=== PATIENT | female | born 1950 | race Caucasian/White ===

== ENCOUNTER 2016-10-25 12:24 | Emergency (ER) | payer MEDICARE, OTHER ==
[~2016-10-25] VITALS: Ht 162.6 cm; Wt 82.0 kg
--- OUTSIDE RECORDS SUMMARY | 2016-10-25 12:34 | XMS REPORT | Summary of Care ---
Author Author Brandt Cruz M.D. Organization Unknown Address Unknown Phone Unavailable Care Team Providers Care Swing Saw Operator Name Role Phone Brandt Cruz M.D. Unavailable Unavailable Nabeel Ferraro M.D. Unavailable Unavailable Deanna Rojo M.D. Unavailable Unavailable Brandt Cruz Unavailable Unavailable Francisco JesusBernardo Unavailable Unavailable Unavailable Unavailable Functional Status Name Dates Details Functional status health issues are not documented Status: Name Dates Details Cognitive status health issues are not documented Status: Problems Name Dates Details Infective otitis externa (380.10, H60.399) Status: Active High risk medication use (V58.69, Z79.899) Status: Active Difficulty swallowing solids (787.20, R13.10) Status: Active Traumatic brain injury (854.00, S06.9X9A) Status: Active Stroke syndrome (434.91, I63.9) Status: Active Personality disorder, unspecified (301.9, F60.9) Status: Active Esophageal reflux (530.81, K21.9) Status: Active Dissocial personality disorder (301.7, F60.2) Status: Active Strain of trapezius muscle, left, initial encounter (840.8, S46.812A) Status: Active Low back pain (724.2, M54.5) Status: Active Trapezius strain (840.8, S46.819A) Status: Active Constipation (564.00, K59.00) Status: Active Screening, lipid (V77.91, Z13.220) Status: Active Complex partial seizure (345.40, G40.209) Status: Active Arthritis, degenerative (715.90, M19.90) Status: Active Nausea (787.02, R11.0) Status: Active Light-headedness (780.4, R42) Status: Active Insomnia (780.52, G47.00) Status: Active Anxiety disorder (300.00, F41.9) Status: Active Fracture of right humerus (812.20, S42.301A) Status: Active Double vision (368.2, H53.2) Status: Active Uncontrolled pain (780.96, R52) Status: Active Humerus fracture (812.20, S42.309A) Status: Active Traumatic hematoma of upper arm (923.03, S40.029A) Status: Active Anemia (285.9, D64.9) Status: Active Medications Name Dates Details LamoTRIgine 100 MG Oral Tablet Take 2 1/2 tabs in AM and 2 tabs in PM Quantity: 405 Refills: 3 Kemar Rojo M.D. Start 12-Sep-2011 Active Zonisamide 100 MG Oral Capsule TAKE 4 CAPSULES AT BEDTIME. Quantity: 360 Refills: 1 Kemar Rojo M.D. Start 12-Sep-2011 Active Omeprazole 20 MG Oral Capsule Delayed Release TAKE 1 CAPSULE TWICE DAILY. Quantity: 60 Refills: 6 Ronan Coleman Baltazar Lees Start Active DULoxetine HCl - 60 MG Oral Capsule Delayed Release Particles TAKE 1 CAPSULE DAILY. Quantity: 90 Refills: 3 Brandt Cruz M.D. Start Active Calcium 1200 2129-1863 MG-UNIT Oral Tablet Chewable Refills: 0 Kemar Rojo M.D. Start Active D3-1000 1000 UNIT Oral Capsule TAKE DIRECTED. Refills: 0 Kemar Rojo M.D. Start Active ROPINIRole HCl - 0.5 MG Oral Tablet Take 1 tablet twice daily Quantity: 180 Refills: 3 Brandt Cruz M.D. Start 30-Sep-2015 Active Fish Oil 1000 MG Oral Capsule TAKE 1 CAPSULE DAILY. Refills: 0 Kemar Rojo M.D. Start 30-Sep-2015 Active Vitamin B-12 1000 MCG Oral Tablet TAKE 1 TABLET DAILY DIRECTED. Refills: 0 Kemar Rojo M.D. Start 30-Sep-2015 Active Ibuprofen 400 MG Oral Tablet TAKE 1 TABLET 4 TIMES DAILY NEEDED. Refills: 0 Kemar Rojo M.D. Start 30-Sep-2015 Active Combigan 0.2-0.5 % Ophthalmic Solution 1 drop in each eye twice daily Refills: 0 Kemar Rojo M.D. Start 30-Sep-2015 Active B Complex Oral Capsule TAKE 1 CAPSULE DAILY. Refills: 0 Darrel Coleman Kemar Huerta Start 30-Sep-2015 Active Loratadine 10 MG Oral Tablet TAKE 1 TABLET DAILY NEEDED. Refills: 0 Darrel Coleman Kemar Huerta Start 30-Sep-2015 Active Benadryl 25 MG Oral Tablet take 1/2 tablet daily as needed Refills: 0 Darrel Coleman Kemar Huerta Start 30-Sep-2015 Active DOK 100 MG Oral Capsule TAKE 1 CAPSULE DAILY. Refills: 0 Start 18-Jan-2016 Active LamoTRIgine 100 MG Oral Tablet TAKE 1 TABLET DAILY. Refills: 0 Start 18-Jan-2016 Active Vitamin B Complex Oral Tablet Refills: 0 Start 18-Jan-2016 Active Remeron 15 MG Oral Tablet TAKE 1 TABLET AT BEDTIME. Refills: 0 Start 18-Jan-2016 Active ClonazePAM 0.5 MG Oral Tablet 1/2 PO Q HS PRN Insomnia or Anxiety Quantity: 15 Refills: 5 Brandt Cruz M.D. Start 18-Jan-2016 Active PredniSONE 20 MG Oral Tablet 2 PO x 2 days then 1 Po x 3 days Quantity: 7 Refills: 0 Baltazar Ferraro M.D. Start 18-Jan-2016 Active Baclofen 10 MG Oral Tablet TAKE 1 TABLET 3 TIMES DAILY NEEDED FOR MUSCLE SPASM. Quantity: 50 Refills: 0 Brandt Cruz M.D. Start Active Polyethylene Glycol 3350 Oral Powder MIX 1 CAPFUL (17GM) IN 8 OUNCES OF WATER, JUICE, OR TEA AND DRINK DAILY. Quantity: 510 Refills: 5 Brandt Cruz M.D. Start Active Calcium + D 500-1000-40 MG-UNT-MCG Oral Tablet Chewable Take 1 tablet twice daily Quantity: 60 Refills: 11 Brandt Cruz M.D. Start Active Dicloxacillin Sodium 500 MG Oral Capsule Take 1 capsule twice daily Quantity: 60 Refills: 0 Brandt Cruz M.D. Start Active FentaNYL 25 MCG/HR Transdermal Patch 72 Hour APPLY 1 PATCH EVERY 3 DAYS Quantity: 10 Refills: 0 Brandt Cruz M.D. Start 06-Jun-2016 Active HYDROmorphone HCl - 2 MG Oral Tablet TAKE 1 TO 2 TABLETS EVERY 4 HOURS NEEDED FOR PAIN. Quantity: 120 Refills: 0 Anthony M.D., Brandt Start 06-Jun-2016 Active FentaNYL 75 MCG/HR Transdermal Patch 72 Hour APPLY 1 PATCH EVERY 3 DAYS Quantity: 1 Refills: 0 Anthony M.D., Brandt Start 14-Jun-2016 Active Allergies and Adverse Reactions Name Dates Details Keflex CAPS (Allergy) Status: Active Mysoline TABS (Allergy) Status: Active Trileptal TABS (Allergy) Status: Active Past Medical History Name Dates Details Arthritis, degenerative (715.90, M19.90) Status: Active Complex partial seizure (345.40, G40.209) Status: Active Dissocial personality disorder (301.7, F60.2) Status: Active Esophageal reflux (530.81, K21.9) Status: Active Personality disorder, unspecified (301.9, F60.9) Status: Active Stroke syndrome (434.91, I63.9) Status: Active Traumatic brain injury (854.00, S06.9X9A) Status: Active History of Bladder disorder (596.9, N32.9) Status: Resolved History of cataract (V12.49, Z86.69) Status: Resolved History of cerebral artery occlusion (V12.59, Z86.79) Status: Resolved History of dizziness (V13.89, Z87.898) Status: Resolved History of glaucoma (V12.49, Z86.69) Status: Resolved History of migraine headaches (V12.49, Z86.69) Status: Resolved Procedures Procedure Dates Details History of Cataract Surgery History of Back Surgery History of Hysterectomy History of Colon Surgery History of Appendectomy History of Tonsillectomy Procedures not documented Immunization Name Dates Details Immunizations not documented Family History Name Dates Details Family history of Hyperlipoproteinemia Comments: Family History Status: Active Family history of Congenital Heart Disease Comments: Family History Status: Active Family history of Cancer Comments: Family History Status: Active Family history of Depression Comments: Family History Status: Active Family history of Essential Hypertension Comments: Family History Status: Active Name Dates Details Family history of malignant neoplasm of uterus (V16.49, Z80.49) Status: Active Name Dates Details Family history of Bleeding disorder (287.9, D68.9) Status: Active Name Dates Details Family history of Cancer Status: Active Family history of Essential Hypertension Status: Active Family history of mental disorder (V17.0, Z81.8) Status: Active Family history of liver cancer (V16.0, Z80.0) Status: Active Name Dates Details Family history of Acute Myocardial Infarction (V17.3) Status: Active Family history of Essential Hypertension Status: Active Family history of High cholesterol (272.0, E78.0) Status: Active Family history of Vocal cord cancer (161.0, C32.0) Status: Active Name Dates Details Family history of Essential Hypertension Status: Active Name Dates Details Family history of chronic obstructive pulmonary disease (V17.6, Z82.5) Status: Active Family history of Essential Hypertension Status: Active Social History Name Dates Details - Status: Name Dates Details Former smoker Vital Signs Date Test Result Details 13-Jun-2016 08:33 BP Systolic 121 mm[Hg] Status: Comments: Location: [facility]; Position: Sitting BP Diastolic 59 mm[Hg] Status: Comments: Location: [facility]; Position: Sitting Heart Rate 81 /min Status: Comments: Location: ; Height 62 in Status: 12-Jun-2016 11:50 BP Systolic 130 mm[Hg] Status: Comments: Location: [facility]; Position: Sitting BP Diastolic 72 mm[Hg] Status: Comments: Location: [facility]; Position: Sitting Temperature 98.4 f Status: Comments: Method: Oral Heart Rate 76 /min Status: Comments: Location: ; Physical Findings 96 Status: Comments: O2 Saturation 14:56 BP Systolic 118 mm[Hg] Status: Comments: Location: ; Position: BP Diastolic 60 mm[Hg] Status: Comments: Location: ; Position: Temperature 98.4 f Status: Heart Rate 58 /min Status: Comments: Location: ; Weight 167 lb Status: Physical Findings 97 Status: Comments: O2 Saturation Body Mass Index Calculated 30.54 kg/m2 Status: Body Surface Area Calculated 1.77 m2 Status: Results Date Description Value Details 13:59 Comprehensive Metabolic Panel 1212 SODIUM 140 mmol/L Range: 133-144 POTASSIUM 4.1 mmol/L Range: 3.5-5.1 CHLORIDE 105 mmol/L Range: 98-110 CARBON DIOXIDE 27.9 mmol/L Range: 23.0-33.0 ANION GAP 7 mmol/L Range: 6-16 BUN 11 mg/dL Range: 7-18 CREATININE, SERUM 0.91 mg/dL Range: 0.55-1.02 Comments: Please note new reference ranges effective 2015.----- BUN:CREATININE RATIO 12 EST GFR, >60 ml/min Range: >60 EST GFR, NON-AFR MALAGASY >60 ml/min Range: >60 Comments: EST GFR is reported in ml/min per 1.73 m2 of body surface area. For -[place], please multiple result by 1.2.----- GLUCOSE 89 mg/dL Range: 70-100 ALK PHOSPHATASE 79 U/L Range: 46-116 TOTAL BILIRUBIN 0.20 mg/dL Range: 0.20-1.00 AST 17 U/L Range: 8-35 ALT 15 U/L Range: 14-59 Comments: Please note new reference ranges. Effective 12/30/2014.----- ALBUMIN 3.6 g/dL Range: 3.4-5.0 TOTAL PROTEIN 6.9 g/dL Range: 6.4-8.2 A/G RATIO 1.1 units Range: 1.0-1.8 CALCIUM 8.9 mg/dL Range: 8.5-10.1 14:05 CBC w/ Auto Diff 7150 WBC 5.1 K/uL Range: 4.5-11.0 RBC 3.97 mil/uL Range: 3.60-5.00 HGB 12.6 g/dL Range: 12.0-16.0 HCT 39.9 % Range: 36.0-48.0 MCV 100.4 fL (Above high threshold) Range: 80.0-99.0 MCH 31.8 pg Range: 27.3-32.5 MCHC 31.6 % (Below low threshold) Range: 32.0-36.0 RDW 14.1 % Range: 11.6-14.8 PLATELETS 239 K/uL Range: 150-400 MPV 8.2 fL Range: 6.0-11.0 %NEUTRO 60.2 % Range: 37.0-80.0 %LYMPHS 26.7 % Range: 13.0-50.0 %MONO 5.4 % Range: 0.0-12.0 %EOS 5.3 % Range: 0.0-7.0 %BASO 0.3 % Range: 0.0-2.5 %ALEXANDER 2.1 % Range: 0.0-5.0 NEUTRO 3.1 K/uL Range: 2.0-6.9 LYMPHS 1.4 K/uL Range: 0.6-3.4 MONOS 0.3 K/uL Range: 0.0-0.9 EOS 0.3 K/uL Range: 0.0-0.7 BASO 0.0 K/uL Range: 0.0-0.2 14:06 THYROID STIM. HORMONE 3602 THYROID STIM. HORMONE 0.874 uIU/mL Range: 0.550-4.780 Comments: No established reference ranges for infants and children <2 years of age----- 21-May-2016 15:04 Zonisamide(Zonegran), Serum [id number] Comments: Testing performed at: [] [address], [address], , [employer] Machine Welder Setter: Kemar Morales MD ZONISAMIDE 28.9 ug/mL Range: 10.0-40.0 Comments: Detection Limit=1.0---- - 16:05 Lamotrigine (Lamictal), Serum [id number] Comments: Testing performed at: [ ] [address], [address], Phone: , Electron Beam Machine Welder Setter: Kemar Morales MD LAMOTRIGINE, SERUM 8.5 ug/mL Range: 2.0-20.0 Comments: Detection Limit=1.0----- 11-Jun-2016 14:35 CBC w/ Auto Diff 7150 Comments: Fastin hours WBC 7.4 K/uL Range: 4.5-11.0 RBC 3.03 mil/uL (Below low threshold) Range: 3.60-5.00 HGB 9.9 g/dL (Below low threshold) Range: 12.0-16.0 Comments: Verified by Repeat AnalysisVariance from previous testing noted.----- HCT 30.4 % (Below low threshold) Range: 36.0-48.0 MCV 100.5 fL (Above high threshold) Range: 80.0-99.0 MCH 32.7 pg (Above high threshold) Range: 27.3-32.5 MCHC 32.5 % Range: 32.0-36.0 RDW 16.1 % (Above high threshold) Range: 11.6-14.8 PLATELETS 467 K/uL (Above high threshold) Range: 150-400 MPV 6.6 fL Range: 6.0-11.0 %NEUTRO 67.2 % Range: 37.0-80.0 %LYMPHS 18.5 % Range: 13.0-50.0 %MONO 6.7 % Range: 0.0-12.0 %EOS 6.1 % Range: 0.0-7.0 %BASO 0.2 % Range: 0.0-2.5 %ALEXANDER 1.3 % Range: 0.0-5.0 NEUTRO 5.0 K/uL Range: 2.0-6.9 LYMPHS 1.4 K/uL Range: 0.6-3.4 MONOS 0.5 K/uL Range: 0.0-0.9 EOS 0.5 K/uL Range: 0.0-0.7 BASO 0.0 K/uL Range: 0.0-0.2 Plan of Care Name Dates Details Planned Observations Planned Goals not documented Planned Encounters Appointment; Provider: Von Marr M.D. On 20-Jun-2016 13:30 Appointment; Provider: Von Marr M.D. On 15-Jun-2016 08:30 Interventions Provided Medication ChangesFentaNYL 75 MCG/HR Transdermal Patch 72 Hour - Start Instructions Name Dates Details Instructions not documented Encounters Appointment; Von Marr M.D. Encounter Diagnosis: Problem not documented On 13-Jun-2016 08:45 Appointment; Brandt Cruz M.D. Encounter Diagnosis: Problem not documented On 12-Jun-2016 11:00 Appointment; Brandt Cruz M.D. Encounter Diagnosis: Problem not documented On 06-Jun-2016 08:15 Appointment; Brandt Cruz M.D. Encounter Diagnosis: Problem not documented On 14:45 Appointment; Brandt Cruz M.D. Encounter Diagnosis: Problem not documented On 09:30 Appointment; Brandt Cruz M.D. Encounter Diagnosis: Problem not documented On 12-Mar-2016 09:45 Appointment; Baltazar Ferraro M.D. Encounter Diagnosis: Problem not documented On 18-Jan-2016 11:00 Appointment; Kemar Rojo M.D. Encounter Diagnosis: Problem not documented On 30-Sep-2015 14:15 Appointment; Kemar Rojo M.D. Encounter Diagnosis: Problem not documented On 01-Jul-2015 11:15 Appointment; Kemar Rojo M.D. Encounter Diagnosis: Problem not documented On 09:30
--- NOTE | 2016-10-25 13:21 | NUR ---
Patient requesting more pain medication at this time - rated 10/10. Relayed to Dr. Griffith.
--- NOTE | 2016-10-25 13:26 | Diagnostic Imaging Report ---
INDICATION: Left leg injury. FINDINGS: AP and lateral views of left tibia and fibula show a nondisplaced fracture of the left fibular neck. There is a trimalleolar fracture of the ankle with minimal displacement of the posterior malleolus. IMPRESSION: Trimalleolar fracture of the ankle and fracture of the fibular neck. Dictated by: Dictated on workstation # [id number]
--- NOTE | 2016-10-25 13:27 | Diagnostic Imaging Report ---
INDICATION: Right shoulder pain. FINDINGS: Two views of the right shoulder show postop changes from internal fixation of the proximal humerus with a plate and screws. The bone appears to be transfixed in good position and there is callus consistent with healing. IMPRESSION: Healing fracture of the proximal humerus with hardware from internal fixation. No acute abnormality is seen. Dictated by: Dictated on workstation # [id number]
[2016-10-25] MEDS ORDERED: HYDROmorphone 1 MG/ML (DILAUDID) SYRINGE IV ONE (13:35)
--- NOTE | 2016-10-25 13:55 | NUR ---
DR MUNOZ ACCEPTS PT FOR TSF TO [facility] AT THIS TIME. CL
--- NOTE | 2016-10-25 14:25 | NUR ---
ANA ([facility] RETURNS CALL TO THIS ED TO REPORT SHE DID TALK WITH DR MUNOZ'S PA (JAKE) WHO SPECIFIES THAT THEY WANT PT TO GO TO THE [facility] ED TO BE SEEN BY JAKE FOR EVAL. REPORT WILL BE CALLED TO ED NURSE THERE IS NO SPECIFIC ROOM ASSIGNMENT. CL
[2016-10-25 16:13] VITALS: BP 140/65
== END 2016-10-25 15:07 | disposition short-term general hospital (02) ==
LOC: EDUNIT# 12:24 → ED 12:28
DX: S82.492A Other fracture of shaft of left fibula, initial encounter for closed fracture (principal); S82.852A Displaced trimalleolar fracture of left lower leg, initial encounter for closed fracture; W00.0XXA Fall on same level due to ice and snow, initial encounter; Y92.009 Unspecified place in unspecified non-institutional (private) residence as the place of occurrence of the external cause; M25.511 Pain in right shoulder
CPT/HCPCS: 73030; 73590; 96374; 99283; J1170; 29505; 29515

== ENCOUNTER → 2016-10-25 | Outpatient (CLI) | payer MEDICARE, OTHER ==
[~2016-10-25] MED LIST: AMOX1TAB12 PO; AMOX500C5 PO; AZIT250T5 PO; BRIM5DRO OP; CALC-140 PO; CHOL400C8 PO; CITA10SO4 PO; CITA40TA19 PO; CLON0.252 PO; CLON0.5T PO; CYAN100088 PO; CYCL5TAB11 PO; DULO60CA58 PO; EST.1TD TD; EST025TD TD; FLUO20CA42 PO; HYDR-3702 PO; HYDR2TAB14 PO; IBUP200C PO; LAMO150T3 PO; LAMO200T PO; LAMO200T14 PO; LVF500T GT; MECL-105 PO; MELO7.5T PO; MRTZ15T PO; NAPR500T3 PO; OMEG-136 PO; OMEP20TA PO; OMEP40CA3 PO; PRED20TA PO; PROM25TA5 PO; QTP25T PO; QUET25TA31 PO; RANI150T11 PO; RANI300C PO; ROPI0.5T4 PO; SENN-75 PO; TIMO5DRO26 OP; TML5OP2.5 OU; VANC1PLA3 IV; VITA1TAB26 PO; [UNRECOGNIZED DRUG - CODE] PO; [UNRECOGNIZED DRUG - CODE] PO; [UNRECOGNIZED DRUG - OTHER] PO; calcium PO
== END ==
LOC: EMS 12:10
PROVIDERS: ATTEND Emergency Medicine
DX: M25.572 Pain in left ankle and joints of left foot (principal); S82.402A Unspecified fracture of shaft of left fibula, initial encounter for closed fracture; S82.892A Other fracture of left lower leg, initial encounter for closed fracture; W01.0XXA Fall on same level from slipping, tripping and stumbling without subsequent striking against object, initial encounter

== ENCOUNTER → 2016-12-28 | Outpatient (CLI) | payer MEDICARE, OTHER | LOC: RAD 06:51 | PROVIDERS: ATTEND Orthopaedic Surgery | DX: M25.562 Pain in left knee (principal); S83.242A Other tear of medial meniscus, current injury, left knee, initial encounter; X58.XXXA Exposure to other specified factors, initial encounter; S82.492A Other fracture of shaft of left fibula, initial encounter for closed fracture | CPT/HCPCS: 73721 ==